=== PATIENT | female | born 1965 | race American Indian/Alaskan Native ===

== ENCOUNTER 2019-04-21 08:21 | Outpatient (CLI) | payer BC ==
--- NOTE | 2019-04-21 10:50 | Vascular Lab Report ---
DUPLEX DOPPLER LOWER EXTREMITY VEINS, BILATERAL INDICATION: M79.89 OTHER SPECIFIED SOFT TISSUE DISORDER/M79.662 PAIN L LEG. Bilateral lower extremit y pain for a few months TECHNIQUE: Duplex doppler imaging was performed through the veins of both lower extremities using ve nous compression and other maneuvers. COMPARISON: No relevant prior imaging study available. FINDINGS: Right Common femoral vein: Negative. Right Superficial femoral vein: Negative. Right Popliteal vein: Negative. Right Calf veins: Negative. Left Common femoral vein: Negative. Left Superficial femoral vein: Negative. Left Popliteal vein: Negative. Left Calf veins: Negative. Additional findings: None.. IMPRESSION: No sonographic evidence for DVT in either lower extremity. Signer Name: Rip Mckeon Jr, MD Signed: 04/21/2019 10:45 AM Workstation Name: [id number]
== END 2019-04-21 08:22 | disposition home or self-care (01) ==
LOC: VAS 08:21 → EDBD 08:21 → VAS 08:22
PROVIDERS: ATTEND Podiatrist Foot & Ankle Surgery
DX: M79.662 Pain in left lower leg (principal); M79.89 Other specified soft tissue disorders
CPT/HCPCS: 93970